=== PATIENT | male | born 1985 | race Caucasian/White ===

== ENCOUNTER 2019-10-20 11:34 | Emergency (ER) | payer OTHER ==
[~2019-10-20] VITALS: Ht 185.4 cm; Wt 175.9 kg
[2019-10-20 12:04] LABS: HEMATOCRIT 41.6 % (39.0-50.0); HEMOGLOBIN 13.6 g/dl (14.0-18.0); IMMATURE GRANULOCYTES 0.5 % (0.0-5.0); MEAN CELL VOLUME 85.8 fL CALC (80.0-100.0); MEAN CORPUSCULAR HGB CONC 32.7 g/dL CAL (32.0-36.0); NEUT# 5.94 thou/uL (1.82-7.42); RED BLOOD COUNT 4.85 mill/uL (4.70-6.10); RED CELL DISTRI WIDTH 13.2 % (11.5-15.5)
[2019-10-20 12:23] LABS: ANION GAP 12 (6-22 (CALC)); BUN 19 mg/dL (9-20); BUN/CREATININE RATIO 21 (12-20 (CALC)); CARBON DIOXIDE 29 mmol/l (22-30); CHLORIDE 99 mmol/l (95-108); CREATININE 0.9 mg/dL (0.7-1.3); GFR > 60 ML/MIN (>=60 (CALC)); GFR FOR AFR.AMER. > 60 ML/MIN (>=60 (CALC)); SODIUM 136 mmol/l (137-146)
[2019-10-20 13:50] VITALS: BP 150/65
== END 2019-10-20 13:50 | disposition home or self-care (01) | DRG 313 ==
LOC: ED 11:34
PROVIDERS: Family Medicine
DX: R07.9 Chest pain, unspecified (principal); I10 Essential (primary) hypertension; F17.290 Nicotine dependence, other tobacco product, uncomplicated

== ENCOUNTER 2021-02-26 03:11 | Emergency (ER) | payer BC ==
[~2021-02-26] VITALS: Ht 185.4 cm; Wt 177.3 kg
[2021-02-26 03:49] LABS: HEMATOCRIT 42.8 % (39.0-50.0); IMMATURE GRANULOCYTES 0.3 % (0.0-5.0); MEAN CELL VOLUME 85.3 fL CALC (80.0-100.0); MEAN CORPUSCULAR HGB 27.9 pG CALC (26.0-32.0); MEAN CORPUSCULAR HGB CONC 32.7 g/dL CAL (32.0-36.0); NEUT# 6.9 thou/uL (1.82-7.42); RED BLOOD COUNT 5.02 mill/uL (4.70-6.10)
[2021-02-26 04:02] LABS: ALBUMIN 3.8 g/dL (3.2-5.0); ALKALINE PHOSPHATASE 144 u/l (38-126); ANION GAP 11 (6-22 (CALC)); BILIRUBIN, TOTAL 0.5 mg/dL (0.0-1.4); BUN 18 mg/dL (9-20); BUN/CREATININE RATIO 21 (12-20 (CALC)); CARBON DIOXIDE 29 mmol/l (22-30); CHLORIDE 100 mmol/l (95-108); CREATININE 0.9 mg/dL (0.7-1.3); GFR > 60 ML/MIN (>=60 (CALC)); GFR FOR AFR.AMER. > 60 ML/MIN (>=60 (CALC)); SGOT/AST 41 u/l (17-59); SODIUM 136 mmol/l (137-146)
[2021-02-26 04:05] LABS: URINE BILIRUBIN - DIPSTICK NEGATIVE (NEGATIVE); URINE BLOOD DIPSTICK NEGATIVE (NEGATIVE); URINE COLOR YELLOW; URINE GLUCOSE - DIPSTICK NEGATIVE (NEGATIVE); URINE KETONE NEGATIVE (NEGATIVE); URINE LEUK ESTERASE NEGATIVE (NEGATIVE); URINE PH 5.5 (4.5-8.0); URINE PROTEIN - DIPSTICK NEGATIVE (NEG-TRACE); URINE SPECIFIC GRAVITY >=1.030; URINE UROBILINOGEN - DIPSTICK 0.2 E.U./dL (0.2)
[2021-02-26 04:07] LABS: URINE NITRITE - DIPSTICK NEGATIVE (Negative)
[2021-02-26 04:11] LABS: D-DIMER 0.61 mg/L (0.19-0.60)
[2021-02-26 04:14] LABS: MYOGLOBIN 42 ng/mL (0 - 121)
[2021-02-26 04:15] LABS: ACT PARTIAL THROMBO TIME 27.6 SECONDS (20.0-32.5); INTERNATIONAL NORMALIZED RATIO 0.9 RATIO (0.7-1.3); PROTHROMBIN TIME 9.9 SECONDS (9.0-12.5)
[2021-02-26] MEDS ORDERED: TORADOL PO (05:59)
[2021-02-26 06:51] VITALS: BP 137/74
== END 2021-02-26 06:40 | disposition home or self-care (01) | DRG 74 ==
LOC: ED 03:11
PROVIDERS: Family Medicine
DX: M54.12 Radiculopathy, cervical region (principal); R06.00 Dyspnea, unspecified; I10 Essential (primary) hypertension; F32.A Depression, unspecified; F17.220 Nicotine dependence, chewing tobacco, uncomplicated; Z20.822 Contact with and (suspected) exposure to COVID-19

== ENCOUNTER 2021-04-30 01:50 | Emergency (ER) | payer BC ==
[~2021-04-30] VITALS: Ht 185.4 cm; Wt 188.0 kg
[~2021-04-30 01:50] MED LIST: TORADOL PO
[2021-04-30 02:37] LABS: HEMATOCRIT 43.8 % (39.0-50.0); HEMOGLOBIN 14.2 g/dl (14.0-18.0); IMMATURE GRANULOCYTES 0.4 % (0.0-5.0); MEAN CELL VOLUME 86.1 fL CALC (80.0-100.0); MEAN CORPUSCULAR HGB 27.9 pG CALC (26.0-32.0); MEAN CORPUSCULAR HGB CONC 32.4 g/dL CAL (32.0-36.0); NEUT# 5.99 thou/uL (1.82-7.42); RED BLOOD COUNT 5.09 mill/uL (4.70-6.10); RED CELL DISTRI WIDTH 13.2 % (11.5-15.5)
[2021-04-30] MEDS ORDERED: COZAAR100 MG PO (02:38)
[2021-04-30] MEDS ORDERED: NORVASC5 M1 PO (02:38)
[2021-04-30 02:39] LABS: URINE BILIRUBIN - DIPSTICK NEGATIVE (NEGATIVE); URINE BLOOD DIPSTICK TRACE-INTACT (NEGATIVE); URINE COLOR YELLOW; URINE GLUCOSE - DIPSTICK 100 mg/dL (NEGATIVE); URINE KETONE NEGATIVE (NEGATIVE); URINE LEUK ESTERASE NEGATIVE (NEGATIVE); URINE PH 5.5 (4.5-8.0); URINE PROTEIN - DIPSTICK 30 mg/dL (NEG-TRACE); URINE SPECIFIC GRAVITY >=1.030; URINE UROBILINOGEN - DIPSTICK 0.2 E.U./dL (0.2)
[2021-04-30] MEDS ORDERED: HYDROCHLOROT25 MG PO (02:39)
[2021-04-30] MEDS ORDERED: SERTRALINE50 MG PO (02:39)
[2021-04-30] MEDS ORDERED: LEVOTHYROXIN50 MCG PO (02:39)
[2021-04-30 02:45] LABS: URINE NITRITE - DIPSTICK NEGATIVE (Negative)
[2021-04-30 02:47] LABS: URINE BACTERIA FEW hpf; URINE EPITHELIAL CELLS FEW EPI/hpf (0-FEW); URINE MUCUS MODERATE hpf (NONE-FEW)
[2021-04-30 02:56] LABS: ALBUMIN 4.1 g/dL (3.2-5.0); ALKALINE PHOSPHATASE 139 u/l (38-126); ANION GAP 15 (6-22 (CALC)); BILIRUBIN, TOTAL 0.4 mg/dL (0.0-1.4); BUN 16 mg/dL (9-20); BUN/CREATININE RATIO 20 (12-20 (CALC)); CARBON DIOXIDE 29 mmol/l (22-30); CHLORIDE 100 mmol/l (95-108); CREATININE 0.8 mg/dL (0.7-1.3); GFR > 60 ML/MIN (>=60 (CALC)); GFR FOR AFR.AMER. > 60 ML/MIN (>=60 (CALC)); POTASSIUM 4.7 mmol/l (3.5-5.1); SGOT/AST 37 u/l (17-59); SODIUM 139 mmol/l (137-146); TOTAL PROTEIN 7.7 g/dL (6.3-8.2)
[2021-04-30] MEDS ORDERED: KEFLEX500 MG PO (03:38)
[2021-04-30 05:02] VITALS: BP 131/75
== END 2021-04-30 03:55 | DRG 880 ==
LOC: ED 01:50
PROVIDERS: Emergency Medicine
DX: R45.851 Suicidal ideations (principal); N39.0 Urinary tract infection, site not specified; F32.A Depression, unspecified; I10 Essential (primary) hypertension; E66.9 Obesity, unspecified; F17.200 Nicotine dependence, unspecified, uncomplicated

== ENCOUNTER 2022-06-06 09:03 | Emergency (ER) | payer BC ==
[~2022-06-06] VITALS: Ht 185.4 cm; Wt 188.2 kg
[~2022-06-06 09:03] MED LIST changes: +COZAAR100 MG PO; +HYDROCHLOROT25 MG PO; +KEFLEX500 MG PO; +LEVOTHYROXIN50 MCG PO; +NORVASC5 M1 PO; +SERTRALINE50 MG PO
[2022-06-06 09:42] VITALS: BP 153/104
[2022-06-06 10:01] VITALS: BP 146/104
[2022-06-06] MEDS ORDERED: NAPROXEN500 MG PO (12:13)
[2022-06-06] MEDS ORDERED: PREDNISONE20 MG PO (12:13)
[2022-06-06 12:19] VITALS: BP 146/104
== END 2022-06-06 12:31 | disposition home or self-care (01) | DRG 556 ==
LOC: ED 09:03
DX: M25.562 Pain in left knee (principal); M25.561 Pain in right knee